=== PATIENT | female | born 1985 | race Caucasian/White ===

== ENCOUNTER → 2020-09-21 | Day surgery (SDC) | payer OTHER ==
[~2020-09-21] MED LIST: BACTROBAN CREAM15 GM TOP; BENTYL 20MG TAB20 MG PO; COLACE 100MG C100 MG PO; FLUOXETINE HCL10 M1 PO; HYDROCODON-ACE1 EAC6 PO; IBUPROFEN600 MG PO; IBUPROFEN800 MG PO; LODINE CAP 300300 MG PO; PERCOCET 5/325 T1 EA PO; PRENATAL VITAM1 EAC3 PO; PROAIR HFA8.5 GM INH; ZOFRAN ODT 4 MG4 MG PO; ZYRTEC10 MG PO
[2020-09-21 07:50] LABS: HEMOGLOBIN 11.5 gm/dl (12.3-15.3); RED BLOOD COUNT 4.49 M/UL (4.00-5.10)
== END | disposition home or self-care (01) ==
LOC: OR 07:07
PROVIDERS: Obstetrics & Gynecology
DX: O03.4 Incomplete spontaneous abortion without complication (principal); F32.9 Major depressive disorder, single episode, unspecified; J45.909 Unspecified asthma, uncomplicated; G40.909 Epilepsy, unspecified, not intractable, without status epilepticus; E66.01 Morbid (severe) obesity due to excess calories; F17.210 Nicotine dependence, cigarettes, uncomplicated; Z68.36 Body mass index [BMI] 36.0-36.9, adult; Z91.040 Latex allergy status; Z88.5 Allergy status to narcotic agent; Z88.8 Allergy status to other drugs, medicaments and biological substances; Z79.899 Other long term (current) drug therapy; Z20.822 Contact with and (suspected) exposure to COVID-19
CPT/HCPCS: 36415; 81001; 85025; 86900; 86901; J7030; J7120; U0002

== ENCOUNTER → 2020-09-26 | Day surgery (SDC) | payer OTHER | END | disposition home or self-care (01) | LOC: OR 08:12 | DX: O03.4 Incomplete spontaneous abortion without complication (principal); Z88.5 Allergy status to narcotic agent; Z88.8 Allergy status to other drugs, medicaments and biological substances; F32.9 Major depressive disorder, single episode, unspecified; J45.909 Unspecified asthma, uncomplicated; F17.210 Nicotine dependence, cigarettes, uncomplicated; G40.909 Epilepsy, unspecified, not intractable, without status epilepticus; Z90.49 Acquired absence of other specified parts of digestive tract; Z20.822 Contact with and (suspected) exposure to COVID-19 | CPT/HCPCS: J1100; J1885; J2001; J2250; J2405; J2704; J3010; J7030; J7120; U0002 ==

== ENCOUNTER 2020-09-30 17:31 | Observation (INO) | payer OTHER ==
[~2020-09-30] VITALS: Ht 162.6 cm; Wt 93.4 kg
[~2020-09-30 17:31] MED LIST changes: -IBUPROFEN800 MG PO; -PERCOCET 5/325 T1 EA PO
[2020-09-30 23:22] LABS: HEMOGLOBIN 9.8 gm/dl (12.3-15.3); RED BLOOD COUNT 3.8 M/UL (4.00-5.10); WHITE BLOOD COUNT 10.8 K/UL (4.5-11.0)
[2020-10-01] MEDS ORDERED: PERCOCET 5/325 T1 EA PO (13:22)
[2020-10-01] MEDS ORDERED: IBUPROFEN800 MG PO (13:22)
== END 2020-10-01 14:20 | disposition home or self-care (01) ==
LOC: MED SURG 4 20:08
PROVIDERS: ADMIT Obstetrics & Gynecology
DX: O03.4 Incomplete spontaneous abortion without complication (principal); Z88.5 Allergy status to narcotic agent; Z88.8 Allergy status to other drugs, medicaments and biological substances; J45.909 Unspecified asthma, uncomplicated; F17.210 Nicotine dependence, cigarettes, uncomplicated; Z68.35 Body mass index [BMI] 35.0-35.9, adult; Z90.49 Acquired absence of other specified parts of digestive tract; Z20.822 Contact with and (suspected) exposure to COVID-19; F31.9 Bipolar disorder, unspecified; E66.9 Obesity, unspecified
CPT/HCPCS: 36415; 85027; 96374; 96375; 96376; G0378; G0379; J0690; J1100; J1885; J2001; J2210; J2405; J2704; J3010; U0002

== ENCOUNTER 2021-06-30 05:35 | Emergency (ER) | payer OTHER ==
[~2021-06-30] VITALS: Ht 162.6 cm; Wt 122.5 kg
[~2021-06-30 05:35] MED LIST changes: +IBUPROFEN800 MG PO; +PERCOCET 5/325 T1 EA PO
[2021-06-30 06:20] LABS: HEMOGLOBIN 13.7 gm/dl (12.3-15.3); RED BLOOD COUNT 4.99 M/UL (4.00-5.10); WHITE BLOOD COUNT 14.2 K/UL (4.5-11.0)
[2021-06-30 06:48] LABS: BUN/CREATININE RATIO 17 (0-10)
[2021-06-30] MEDS ORDERED: HYDROCODON-ACE1 EAC4 PO (09:05)
== END 2021-06-30 09:16 | disposition home or self-care (01) ==
LOC: ER1 05:35
PROVIDERS: Physician Assistant Medical
DX: N13.2 Hydronephrosis with renal and ureteral calculous obstruction (principal); I10 Essential (primary) hypertension; F17.210 Nicotine dependence, cigarettes, uncomplicated; Z91.040 Latex allergy status; Z88.8 Allergy status to other drugs, medicaments and biological substances
CPT/HCPCS: 80053; 81001; 84703; 85025; 96374; 96375; 99284; J1885; J2550

== ENCOUNTER 2021-12-01 09:55 | Emergency (ER) | payer OTHER ==
[~2021-12-01 09:55] MED LIST changes: +HYDROCODON-ACE1 EAC4 PO
[2021-12-01 10:44] LABS: HEMOGLOBIN 12.1 gm/dl (12.3-15.3); RED BLOOD COUNT 4.1 M/UL (4.00-5.10); WHITE BLOOD COUNT 12.3 K/UL (4.5-11.0)
[2021-12-01 11:01] LABS: BUN/CREATININE RATIO 16 (0-10)
== END 2021-12-01 14:00 | disposition home or self-care (01) ==
LOC: ER1 09:55
PROVIDERS: Student in an Organized Health Care Education/Training Program
DX: O20.9 Hemorrhage in early pregnancy, unspecified (principal); O10.912 Unspecified pre-existing hypertension complicating pregnancy, second trimester; O99.512 Diseases of the respiratory system complicating pregnancy, second trimester; O99.332 Smoking (tobacco) complicating pregnancy, second trimester; F17.210 Nicotine dependence, cigarettes, uncomplicated; Z3A.18 18 weeks gestation of pregnancy; Z88.8 Allergy status to other drugs, medicaments and biological substances; Z88.5 Allergy status to narcotic agent
CPT/HCPCS: 76815; 80053; 81001; 85025; 86900; 86901; 93005; 99284